=== PATIENT | female | born 1975 | race Caucasian/White ===

== ENCOUNTER → 2022-10-16 06:07 | Outpatient (CLI) | payer SELFPAY ==
--- NOTE | 2022-10-16 06:26 | NM_ITS ---
APPROVED REPORT Exam: Nuclear Stress Test Indication: chest pain..soa..palpitations..fatigue Patient Location: Outpatient Stress Tech: Mirta Ingram NE Tech:ROBIN Ware RT(R)(N) Ht: 5 ft 4 in Wt: 163 lbs Bra Size: 38d HR: 89 bpm BP: 115/78 mmHg BSA: 1.79 m2 Rhythm: NSR TID: 1.14 BMI: 27.9 History: chest pain..soa..palpitations..fatigue Procedure: Patient exercised on Wale protocol 7 minutes and sec, resting heart rate 89 bpm, resting blood pressure 115/78 mmHg, with exercise maximum heart rate achived was 160 bpm which is 92 % of the maximum predicted heart rate and blood pressure was 158/90 mmHg. Test was stopped due to fatigue. Patient denied any complaint of chest pain. Patient has Average exercise capacity, achieved 10.1 METs of workload on treadmill, the blood pressure response to exercise was Normal. Electrocardiogram Stress ECG demonstrated no significant ST changes. Significant ectopy was present during recovery, including PACs, PVCs, 4-beat NSVT, and burse of SVT (likely atrial tachycardia). Cardiac Stress and Resting SPECT Images: Cardiac Stress and Resting SPECT images were obtained using technetium 99m Myoview 30.4 mCi stress and 10.32 mCi at rest. This is a technically difficult study due to significant soft tissue overlap and close proximity of GI radiotracer uptake to the cardiac border. This is most notable in the resting images. This may affect the diagnostic interpretation of the study findings, including identification of whether perfusion defects are fixed or reversible by nature. Resting and stress imaging demonstrate a medium sized, moderate perfusion defect in the basal to mid anterior wall. This defect visually appears to be predominantly fixed with minimal regions of reversibility. However, confirmation regarding the reversible vs. fixed nature of this defect cannot be made conclusively in this study due to significant reduction in radiotracer count uptake in the resting images. There is also a medium sized, moderate, fixed perfusion defect noted in the inferior wall in both resting and supine stress imaging. But this inferior perfusion defect is no longer visualized in prone stress imaging. Therefore this finding is most suggestive of diaphragmatic attenuation. Gated imaging demonstrates a normal global and regional LV systolic function. LVEF is calculated at 56%. Conclusion: This is a technically difficult study due to significant soft tissue overlap and close proximity of GI radiotracer uptake to the cardiac border. This is most notable in the resting images. This may affect the diagnostic interpretation of the study findings, including identification of whether perfusion defects are fixed or reversible by nature. Diaphragmatic attenuation is also present. Medium sized, moderate perfusion defect in the basal to mid anterior wall. This defect visually appears to be predominantly fixed with minimal regions of reversibility. However, confirmation regarding the reversible vs. fixed nature of this defect cannot be made conclusively in this study due to significant reduction in radiotracer count uptake in the resting images. Gated imaging demonstrates a normal global and regional LV systolic function. LVEF is calculated at 56%. In light of the significant ectopy present during recovery, as well as considering the non-diagnostic nature of this nuclear stress test due to significant artifact, alternative diagnostic modalities should be considered if clinical suspicion is high for ischemia. Electronically signed by : Serina Hampton, 10/16/2022 23:21:07
--- NOTE | 2022-10-16 09:10 | CA_ITS ---
APPROVED REPORT Exam: Exercise Treadmill Technologist: Mirta Ingram Ht: 5 ft 4 in Wt: 163 lbs BSA: 1.79 m2 HR: 63 bpm BP: 115/78 mmHg Rhythm: NSR Indications: Dyspnea, Chest pain Medical History Medications: No home meds,,,,, Stress Test Details Test: Wale HR Resting HR: 89 bpm Max Heart Rate (APMHR): 174 bpm Max HR Achieved: 160 bpm Target HR (85% APMHR): 148 bpm % of APMHR: 92 Recovery HR: 77 bpm HR response to stress: Normal HR response to stress BP Resting BP: 115.0/78.0 mmHg Max BP: 158.0/90.0 mmHg Recovery BP: 110.0/72.0 mmHg BP response to stress: Normal blood pressure response to stress. ECG Resting ECG: Normal sinus rhythm, right bundle branch block Stress ECG: No ST changes Arrhythmia: None Recovery ECG: None Recovery Arrhythmia: PACs, PVCs, 1 run of NSVT (4-beats), burst of SVT Clinical Exercise duration: 07:00 min Highest Stage Achieved: Exercise capacity: 10.1 METs Overall Exercise Capacity for Age: Average Stress ECG Conclusion The patient was able to exercise for a total of 7 minutes, 0 seconds on Wale protocol. She achieved a total of 10.1 METS. She has an average exercise capacity compared to age and sex matched peers. She has normal HR and BP response to exercise. Test stopped due to shortness of air, fatigue. Symptoms: Mild chest pressure with shortness of air. Arrhythmias/Ectopy: PACs, occasional PVC. one 4 beat of nonsustained VT noted in recovery. One 19 beat run of SVT (likely atrial tachycardia) with rates up to 220 beats per minute noted in recovery. ST-T Changes: Average exercise capacity. Normal ST response to exercise. Ectopy present during recovery, including PACs, PVCs, NSVT, and SVT (likely atrial tachycardia). Conclusion: SVT and non-sustained VTach (NSVT) in recovery. No ischemic ST changes present at peak stress. Myoview images reported seperately. Test Summary REST . . . . . . . Sitting REST . . . . . . . Standing REST 05:53 0.0 0.0 89 . 115/ 78 . . Stage 1 01:00 10.0 1.7 115 . . . . Stage 1 02:00 10.0 1.7 127 . . . . Stage 1 03:00 10.0 1.7 127 . 158/ 90 . . Stage 2 01:00 12.0 2.5 133 . . . . Stage 2 . . . . . . . Shortness of Breath Stage 2 02:00 12.0 2.5 135 . . . . Stage 2 . . . . . . . Myoview Injected Stage 2 03:00 12.0 2.5 133 . . . . Stage 3 01:00 14.0 3.4 138 . . . Stop exercise at 07:00 RECOVERY . . . . . . . chest tightness RECOVERY 01:00 0.0 0.0 119 . . . . RECOVERY 02:00 0.0 0.0 69 . . . . RECOVERY 03:00 0.0 0.0 94 . 130/ 68 . . RECOVERY 04:00 0.0 0.0 84 . 128/ 67 . . RECOVERY 05:00 0.0 0.0 77 . 110/ 72 . . RECOVERY 05:20 0.0 0.0 84 . 110/ 72 . . Electronically signed by : Serina Hampton, 10/16/2022 23:00:08
== END ==
LOC: RAD 06:08
PROVIDERS: Visit Provider Nurse Practitioner
DX: R06.00 Dyspnea, unspecified (principal); R07.89 Other chest pain; R00.2 Palpitations; I34.1 Nonrheumatic mitral (valve) prolapse; R94.31 Abnormal electrocardiogram [ECG] [EKG]
CPT/HCPCS: 78452; 93017; A9502